=== PATIENT | male | born 1950 | race Caucasian/White ===

== ENCOUNTER 2022-09-16 14:31 | Outpatient (CLI) | payer MEDICARE, OTHER ==
[~2022-09-16 14:31] MED LIST: Magnevist 469MG/ML 20 ML VIAL ONE
== END 2022-09-16 14:32 | disposition home or self-care (01) ==
LOC: TBSIIMAG 14:31
PROVIDERS: ATTEND Family Medicine
DX: R41.3 Other amnesia (principal)
CPT/HCPCS: 70553; 82565

== ENCOUNTER 2023-06-20 10:22 | Observation (INO) | payer MEDICARE, OTHER ==
[2023-06-20 11:05] LABS: #Eosinphils 0.1 thou/uL (0.0-0.7); #Monocytes 0.5 thou/uL (0.11-0.59); #Neutrophils 4.3 thou/uL (1.40-6.50); %Basophils 0.5 % (0.0-1.0); %Lymphocytes 19.9 % (21.0-51.0); %Monocytes 8.2 % (0.0-10.0); %Neutrophils 70.1 % (42.0-75.0); Hematocrit 37.5 % (42.0-52.0); Hemoglobin 12.6 g/dL (14.0-18.0); Mean Corpuscular HGB CONC 33.6 g/dL (32.0-36.0); Mean Corpuscular Hemoglobin 30.5 pg (27.0-31.0); Mean Corpuscular Volume 90.8 fl (78.0-98.0); Platelet Count 171 10x3/uL (130-400); RBC Distribution Width 13.4 % (11.5-14.5); Red Blood Cell (RBC) Count 4.13 mill/uL (4.70-6.10); White Blood Cell (WBC) Count 6.1 10x3/uL (4.8-10.8)
[2023-06-20 11:35] LABS: ALT (SGPT) 19 U/L (8-55); AST (SGOT) 30 U/L (5-34); Albumin 4.3 g/dL (3.4-4.8); Alkaline Phosphatase 60 U/L (40-110); Anion Gap 11 mmol/L (10-20); BUN (Urea Nitrogen) 22 mg/dL (8.4-25.7); Bilirubin, Total 0.9 mg/dL (0.2-1.2); Calc. Creatinine Clearance 0 mL/min (70-130); Carbon Dioxide 24 mmol/L (23-31); Chloride 106 mmol/L (98-107); Estimated GFR 61; Globulin 2.8 g/dL (2.4-3.5); Glucose 114 mg/dL (83-110); Potassium 4.3 mmol/L (3.5-5.1); Protein, Total 7.1 g/dL (5.8-8.1); Sodium 137 mmol/L (136-145)
[2023-06-20 11:48] LABS: Bilirubin Negative (Negative); Blood, Urine Negative (Negative); Glucose, Urine (Dipstick) Negative (Negative); Ketone, Urine Trace mg/dL (Negative); Leukocyte Negative (Negative); Nitrite Negative (Negative); Protein, Urine (Dipstick) Negative (Neg-Trace); Urobilinogen 0.2 mg/dL (Less than 2)
[2023-06-20 11:51] LABS: Clarity Clear (Clear)
[2023-06-20 12:11] LABS: Bacteria/HPF 1+ HPF (None Seen); CAUTI Indications for Culture Alt mental st,lethar; RBC/HPF None Seen HPF (0-3); Squamous Epithelial None Seen HPF (0-3); WBC/HPF None Seen HPF (0-3)
[2023-06-20 12:12] LABS: Urine Culture Reflex No No
[2023-06-20 12:23] LABS: SARS-CoV-2 NAA Rapid Test DETECTED (NotDetected)
[2023-06-20 12:37] LABS: Troponin I 0.026 ng/mL (< 0.028)
[2023-06-20 15:11] VITALS: BMI 29.8
[2023-06-20] MEDS ORDERED: Ondansetron ODT 4 MG TAB PO PRN (15:12)
[2023-06-20] MEDS ORDERED: Acetaminophen 325 MG TAB PO PRN (15:12)
[2023-06-20] MEDS ORDERED: Benzonatate 100 MG CAP PO PRN (15:16)
[2023-06-20] MEDS ORDERED: guaiFENesin 200 MG TAB PO PRN (15:16)
[2023-06-20] MEDS ORDERED: Albuterol 200 PUFF (6.7GM INHALER) INH PRN (15:43)
[2023-06-20] MEDS ORDERED: Benzonatate 100 MG CAP ONE (16:20)
[2023-06-20] MEDS: Benzonatate 100 MG CAP PO SCH (20:33)
[2023-06-20] MEDS ORDERED: Melatonin 3 MG TAB PO SCH ×2 (21:00)
[2023-06-21] MEDS ORDERED: Melatonin 3 MG TAB PO SCH (02:15)
[2023-06-21] MEDS: Benzonatate 100 MG CAP PO SCH (05:34)
[2023-06-21 08:49] VITALS: BP 137/82; TEMP 97.4
[2023-06-21] MEDS ORDERED: Thyroid 60 MG TAB PO SCH (09:00)
[2023-06-21] MEDS ORDERED: Ezetimibe 10 MG TAB PO SCH (09:00)
[2023-06-23] MEDS ORDERED: FLU VACC QS2023(65UP)/MF59C/PF 60 MCG/0.5 ML SYRINGE IM ONE (09:00)
== END 2023-06-21 12:03 | disposition home or self-care (01) ==
LOC: ERS 10:22 → INTOOBSV 14:19 → ERHOLD 14:19 → T4-A 17:40
PROVIDERS: ADMIT Emergency Medicine; ATTEND Emergency Medicine
DX: F03.92 Unspecified dementia, unspecified severity, with psychotic disturbance (principal); U07.1 COVID-19; F05 Delirium due to known physiological condition; E78.5 Hyperlipidemia, unspecified; E03.9 Hypothyroidism, unspecified; D64.9 Anemia, unspecified; J45.909 Unspecified asthma, uncomplicated; I20.89 Other forms of angina pectoris; Z88.5 Allergy status to narcotic agent; Z88.8 Allergy status to other drugs, medicaments and biological substances; Z79.899 Other long term (current) drug therapy; Z79.890 Hormone replacement therapy; Z79.51 Long term (current) use of inhaled steroids; Z90.89 Acquired absence of other organs; Z98.890 Other specified postprocedural states
CPT/HCPCS: 0240U; 70450; 71045; 81001; 84484; 93005; 96360; 96361; 99285; G0378 ×3; 36415; 80053; 84443; 85025